=== PATIENT | male | born 1945 | race Caucasian/White ===

== ENCOUNTER → 2016-10-04 | Outpatient (CLI) | payer OTHER, MEDICARE ==
[~2016-10-04] MED LIST: ACET-1256 PO; AMLO-114 PO; ASPCH81 PO; ASPEC325 PO; ATOR-24 PO; CHOL100027 PO; HYDC25 PO; LISI20TA3 PO; LISI40TA PO; MULT-506 PO; OMEG10007 PO; PSYL0.524; RXC5 PO
[2016-10-04 13:53] LABS: INR 0.9 (0.9-1.1); PARTIAL THROMBOPLASTIN RATIO 1.2
[2016-10-04 13:59] LABS: BASO % 0.6 %; BASO ABS # 0.04 K/uL (0-0.2); COMPLETE YES; EOS % 3.6 %; HEMATOCRIT 43.3 % (42-52); IG% 0.1 %; LYMPH % 20.9 %; LYMPH ABS # 1.47 K/uL (1.2-3.4); MEAN CELL VOLUME 84.7 fL (80-100); MEAN CORPUSCULAR HEMOGLOBIN 27.4 pg (25-34); MEAN CORPUSCULAR HGB CONC 32.3 g/dl (32-36); MEAN PLATELET VOLUME 11.1 fL (7.4-10.4); MONO % 7.8 %; PLATELET COUNT 205 K/uL (130-400); RED BLOOD COUNT 5.11 M/uL (4.7-6.1); WHITE BLOOD COUNT 7.04 K/uL (4.8-10.8)
[2016-10-04 14:25] LABS: BLOOD UREA NITROGEN 22 mg/dl (7-18); CALCIUM 9.4 mg/dl (8.5-10.1); CARBON DIOXIDE 23 mmol/L (21-32); CHLORIDE 105 mmol/L (98-107); GLUCOSE 94 mg/dl (70-99); POTASSIUM 3.8 mmol/L (3.5-5.1); SODIUM 137 mmol/L (136-145)
[2016-10-04 14:34] LABS: URINE APPEARANCE CLEAR (CLEAR); URINE BILIRUBIN NEG (NEG); URINE COLOR YELLOW; URINE NITRITE NEG (NEG); URINE SPECIFIC GRAVITY 1.023 (1.000-1.030); UROBILINOGEN NEG (NEG)
[2016-10-04 14:39] LABS: MANUAL MICROSCOPIC REQUIRED? NO; REVIEW REQ? NO
--- NOTE | 2016-11-01 08:13 | CODING QUERY MEDICAL NECESSITY ---
CQSUPPORTING DIAGNOSIS NEEDED A supporting diagnosis is required for the test/procedure performed on this patient in order for us to be reimbursed by the patient's insurance. Please provide a supporting diagnosis for the following test/procedure listed below next to the test name along with your signature. *If there is no additional diagnosis for this patient that would support the following test/procedure please document that below next to the test/procedure. Test(s)/Procedure(s) that require a supporting diagnosis: DOS 10/04/16 URINE CULTURE TEST PROTHROMBIN TIME TEST Provider Signature: Date: Thank you Edith Pedersen Health Information Management Once completed, please kindly fax back to [phone] For questions please call [phone]
== END | disposition home or self-care (01) ==
LOC: C.LABBC 11:00
PROVIDERS: ATTEND Orthopaedic Surgery
DX: Z01.818 Encounter for other preprocedural examination (principal); M16.12 Unilateral primary osteoarthritis, left hip; Z01.812 Encounter for preprocedural laboratory examination

== ENCOUNTER 2016-10-11 05:02 | Inpatient (IN) | payer OTHER, MEDICARE ==
[2016-10-05 13:42] VITALS: BMI 32.0
--- NOTE | 2016-10-07 10:03 | HISTORY & PHYSICAL EXAMINATION ---
DATE OF ADMISSION: 10/11/2016 CHIEF COMPLAINT: Primary osteoarthritis of the left hip. HISTORY OF PRESENT ILLNESS: Carlos is a very pleasant 71-year-old male who has been dealing with several-year history of bilateral hip pain, left worse than right. It affects his daily life. He has very little motion of his hips and significant pain with ambulation. X-rays of his hip demonstrate advanced osteoarthritis, and after failing extensive conservative treatment, he has elected to proceed with a left total hip arthroplasty. PAST MEDICAL HISTORY: Significant for osteoarthritis, hyperlipidemia, hypertension. SURGICAL HISTORY: Significant for cholecystectomy. ALLERGIES: None. MEDICATIONS: Include hydrochlorothiazide 25 mg daily, lisinopril 40 mg daily, amlodipine 10 mg daily, atorvastatin 40 mg daily, aspirin 81 mg daily. FAMILY HISTORY: Noncontributory. SOCIAL HISTORY: He is , has 2 kids. Never drinks. Remains active. REVIEW OF SYSTEMS: He complains of bilateral hip pain, left worse than right. All other pertinent review of systems are negative. PHYSICAL EXAMINATION: GENERAL: He is awake, alert and oriented x3. He is in no apparent distress. He is very pleasant. HEENT: Pupils are equal, round and reactive to light. Extraocular movements intact. Oral mucosa is pink and moist. HEART: Regular rate per radial pulse. LUNGS: Janelle symmetrically bilaterally with no audible breath sounds. ABDOMEN: Soft, nontender, nondistended. MUSCULOSKELETAL: On physical examination of the left leg, he does have a leg length discrepancy with his left leg seeming slightly shorter than his right. He has a very antalgic gait. He has a lot of tightness of his hip. I am unable to get him up to 90 degrees of flexion. He has internal rotation about 10 degrees shy of neutral and 5 degrees of external rotation. X-rays of the pelvis do show advanced osteoarthritis of both hips with joint space narrowing and osteophyte formation. IMPRESSION: Advanced osteoarthritis of the left hip. PLAN: We will proceed with a Biomet Taperloc left total hip arthroplasty. Postoperatively, he will be kept in the hospital for postoperative medical management. He will be started on aspirin 325 mg twice a day for DVT prophylaxis.
[2016-10-11] VITALS (7 sets, daily range): BP systolic 134–170; BP diastolic 71–80; PULSE 66–83; TEMP 36.6–37.2; O2SAT 95–98; Ht 170.2 cm; Wt 94.5 kg
[~2016-10-11] VITALS: Ht 170.2 cm; Wt 94.5 kg
[~2016-10-11 05:02] MED LIST changes: -ASPEC325 PO; -LISI20TA3 PO; -OMEG10007 PO; -RXC5 PO
[2016-10-11] MEDS ORDERED: CEFAZOLIN 2000 MG/60 ML D5W 60 ML IV SCH (06:00)
[2016-10-11] MEDS ORDERED: LACTATED RINGER'S 1000ML 1,000 ML IV SCH (06:00)
[2016-10-11] MEDS ORDERED: FAMOTIDINE 20 MG TAB PO SCH (06:00)
[2016-10-11] MEDS ORDERED: GABAPENTIN 300 MG CAP PO SCH (06:00)
[2016-10-11] MEDS ORDERED: ROPIVACAINE 5MG/ML 30 ML 150 MG, BUPIVACAINE/EPINEPHR 0.5% MPF 30 ML, KETOROLAC TROMETH... INFIL SCH ×7 (06:00)
[2016-10-11] MEDS ORDERED: LACTATED RINGER'S 1000ML IV SCH (06:00)
[2016-10-11] MEDS ORDERED: LACTATED RINGER'S 500 ML IV SCH (06:00)
[2016-10-11] MEDS ORDERED: ACETAMINOPHEN 500 MG TAB PO SCH (06:00)
[2016-10-11] MEDS: TRANEXAMIC ACID INJ 1,000 MG in SODIUM CHLORIDE 0.9% 100ML 100 ML IV SCH ×2 (06:06→06:17)
[2016-10-11] MEDS ORDERED: BUPIVACAINE 0.5 % 5 MG/1 ML PF 10ML VIAL ONE (06:35)
[2016-10-11] MEDS ORDERED: MIDAZOLAM HCL 1 MG/ML 2ML VIAL ONE (06:47)
[2016-10-11] MEDS ORDERED: ORTHO JOINT ANESTHETIC ONE (06:51)
[2016-10-11] MEDS ORDERED: BACITRACIN 50000 UNIT VIAL ONE (06:51)
--- NOTE | 2016-10-11 06:51 | History & Physical Bridge Note ---
H&P Re-Evaluation Bridge Note: I have examined the patient, reviewed the History & Physical and in the interval since the performance of the History & Physical I have noted the following changes of clinical significance: No changes noted
[2016-10-11] MEDS ORDERED: FLUMAZENIL 0.1 MG/1 ML 10 ML VIAL IV PRN (07:30)
[2016-10-11] MEDS ORDERED: FENTANYL CITRATE INJ 50 MCG/1 ML 2 ML VIAL IV PRN (07:30)
[2016-10-11] MEDS ORDERED: ATROPINE SULFATE 0.1 MG/ML 5ML SYR IV PRN (07:30)
[2016-10-11] MEDS ORDERED: EpHEDrine SULFATE INJ 50 MG/ML AMP IV PRN (07:30)
[2016-10-11] MEDS ORDERED: ONDANSETRON INJ 2 MG/ML 2 ML VIAL IV PRN ×2 (07:30→09:30)
[2016-10-11] MEDS ORDERED: PHENYLEPHRINE 100MCG/ML 5ML SYR IV PRN (07:30)
[2016-10-11] MEDS ORDERED: MEPERIDINE HCL 25 MG/ML CARP IV PRN (07:30)
[2016-10-11] MEDS ORDERED: NALOXONE HCL 0.4 MG/1 ML VIAL/CARP IV PRN (07:30)
[2016-10-11] MEDS ORDERED: LABETALOL HCL IV 5 MG/ML 20ML IV PRN (07:30)
[2016-10-11] MEDS ORDERED: HYDROmorphone INJ 2 MG/ML SYR/VIAL IV PRN (07:30)
[2016-10-11] MEDS ORDERED: LIDOCAINE HCL 2% 2 ML VIAL (20MG/ML) ONE (07:40)
[2016-10-11] MEDS ORDERED: PROPOFOL IV EMULSION 10 MG/ML 20 ML VIAL IV ONE (07:40)
[2016-10-11] MEDS ORDERED: EpHEDrine SULFATE 50MG/5ML SYR ONE (08:17)
[2016-10-11] MEDS ORDERED: PHENYLEPHRINE 100MCG/ML 5ML SYR ONE (08:17)
--- NOTE | 2016-10-11 09:18 | [facility] Post Operative Brief Note ---
Immediate Operative Summary Operative Date Oct 11, 2016. Pre-Operative Diagnosis Advanced Osteoarthritis Left Hip Post-Operative Diagnosis Advanced Osteoarthritis Left Hip Procedure(s) Performed Left Anterior Total Hip Arthroplasty--Uncemented Surgeon Dr. Lim Bag Sorter Surgeon(s) MARIA DE JESUS Castro Estimated Blood Loss 350 ml Findings as above Specimens A. Left Femoral Head Complication(s) None Disposition Recovery Room / PACU
[2016-10-11] MEDS ORDERED: SILVER SULFADIAZINE 1% CR 50 GM JAR EXT PRN (09:30)
[2016-10-11] MEDS ORDERED: BISACODYL 10 MG SUPP PR PRN (09:30)
[2016-10-11] MEDS ORDERED: MAGNESIUM HYDROXIDE SUSP 30 ML UDC PO PRN (09:30)
[2016-10-11] MEDS ORDERED: SOD PHOSPHATE/SOD BIPHOSPHATE ENEMA 132 ML BTL PR PRN (09:30)
[2016-10-11] MEDS ORDERED: MoRPHine SULFATE 2 MG/ML CARP IV PRN (09:30)
[2016-10-11] MEDS ORDERED: METOCLOPRAMIDE HCL INJ 5 MG/ML 2 ML VIAL IV PRN (09:30)
--- NOTE | 2016-10-11 10:05 | DIAGNOSTIC IMAGING REPORT ---
LEFT PELVIS/UNILATERAL HIP 1 VIEW CLINICAL HISTORY: Postoperative evaluation. COMPARISON: Hip radiographs August 03, 2016. FINDINGS: Alignment of the total left hip arthroplasty is anatomic. There is no periprosthetic fracture or unexpected radiopaque foreign body. Acetabular screw and surgical drain is in place. There are no unexpected radiopaque foreign bodies. End stage osteoarthritis of the right hip with flattening of the femoral head is noted. IMPRESSION: Expected findings following total left hip arthroplasty. Electronically signed by: Babatunde Rodriguez M.D. 10/11/2016 10:03 AM Dictated Date/Time: 10/11/2016 10:02 AM
--- NOTE | 2016-10-11 10:06 | Anesthesiology Progress Note ---
Anesthesia Post Op Note Date & Time Oct 11, 2016 at 10:06 Vital Signs Pain Intensity: 0 Vital Signs Past 12 Hours Date Time Temp Pulse Resp B/P (MAP) Pulse Ox O2 Delivery O2 Flow Rate FiO2 10/11/16 09:55 65 13 136/72 99 Nasal Cannula 2 10/11/16 09:45 63 15 125/70 98 Nasal Cannula 2 10/11/16 09:37 36.8 69 16 127/69 100 Oxymask 10 10/11/16 05:33 36.6 71 20 170/80 97 Room Air Notes Mental Status: alert / awake / arousable, participated in evaluation Pt Amnestic to Procedure: Yes Nausea / Vomiting: adequately controlled Pain: adequately controlled Airway Patency, RR, SpO2: stable & adequate BP & HR: stable & adequate Hydration State: stable & adequate Neuraxial Anesthesia: was administered, sensory block is resolving Anesthetic Complications: no major complications apparent
--- NOTE | 2016-10-11 10:07 | DIAGNOSTIC IMAGING REPORT ---
LEFT HIP UNILATERAL 1 VIEW CLINICAL HISTORY: LEFT ANTERIOR HIP COMPARISON STUDY: Left hip radiographs August 03, 2016. Fluoroscopy time: 51 seconds. FINDINGS: 3 fluoroscopic images demonstrate expected findings during total left hip arthroplasty. Acetabular screw is in place. No fracture or unexpected radiopaque foreign bodies are identified. IMPRESSION: Expected findings during total left hip arthroplasty. Electronically signed by: Babatunde Rodriguez M.D. 10/11/2016 10:05 AM Dictated Date/Time: 10/11/2016 10:04 AM
--- NOTE | 2016-10-11 10:10 | OPERATIVE REPORT ---
DATE OF OPERATION: 10/11/2016 PREOPERATIVE DIAGNOSIS: Primary osteoarthritis of the left hip. POSTOPERATIVE DIAGNOSIS: Same. PROCEDURE: Left total hip arthroplasty. SURGEON: Dr. Inderjit Lim. NUCLEAR MONITORING TECHNICIAN: Min Calvo PA-C, whose assistance was necessary for helping with retraction and closure. ANESTHESIA: Spinal. COMPLICATIONS: None. CONDITION: Stable to PACU. IMPLANTS USED: I used a Biomet Taperloc system with a size 11 standard offset pressfit Taperloc stem, a G7 size 54 acetabular cup with a single 20 mm screw and an E1 poly liner as well as a ceramic size 40 head with a -3 neck. INDICATIONS: Carlos is a pleasant 71-year-old male who presented to my office with severe bilateral hip pain. X-rays and clinical examination were diagnostic for primary osteoarthritis of both hips. His left hip was bothering him more, and after failing conservative treatment, he elected to undergo a left total hip arthroplasty. OPERATION AND FINDINGS: On 10/11/2016, he arrived at [facility] for the above procedure. He was seen in the preoperative holding area and the operative extremity was identified and signed. He was given a spinal anesthetic and a preoperative antibiotic. He was taken back to the operating room, laid on table in supine position, given basic sedation. The left leg was brought out to a Purist leg positioner. The left hip was then prepped and draped in sterile fashion. Timeout was done, and the patient and operative extremity was properly identified. An anterior approach was used. Dissection was taken down through the tensor and the tensor was retracted laterally and the sartorius and rectus were retracted medially. The circumflex vessels were ligated and the capsule was exposed. The capsule was then incised and tagged for later repair. The femoral head was exposed and the femoral neck was resected. The head was removed and the acetabulum was exposed. Sequential reaming of the acetabulum was then done under fluoroscopy. I was able to ream up to a size 53 and get good bleeding bone circumferentially with proper medialization of the cup. A size 54 G7 cup was then impacted into place, I was able to get a good pressfit, and a single 20 mm screw was placed. The femur was then exposed. Sequential broaching up to a size 11 broach was done. A standard offset neck and a -3 trial were reduced. The hip was reduced and fluoroscopy showed anatomic alignment. I was actually able to lengthen his leg a little bit from what it was preoperatively. The hip was then dislocated. The final size 11 pressfit stem was impacted into place. The ceramic size 40 humeral head with a -3 neck was then impacted on this trunnion and the hip was reduced. Final fluoroscopic images showed anatomic alignment. The wound was then irrigated and the surrounding soft tissues were injected with 100 mL of an orthopedic pain control cocktail. The capsule was then closed with #1 Vicryl sutures. The entire wound was irrigated with 3 liters of normal saline solution with bacitracin. The fascia was then closed with #1 PDS suture in a running fashion and the skin was closed with 2-0 Vicryl and 0 Prolene suture and a Prineo dressing. He was then taken to the postanesthesia care unit in stable condition. He tolerated the procedure well. I attest to the content of the Intraoperative Record and any orders documented therein. Any exception s are noted below.
[2016-10-11] MEDS: KETOROLAC TROMETHAMINE 15 MG/ML VIAL IV. SCH ×3 (11:38→23:27)
[2016-10-11] MEDS: SODIUM CHLORIDE 0.9% 1000ML 1,000 ML IV SCH ×2 (11:38→20:52)
[2016-10-11] MEDS: ACETAMINOPHEN IV 1,000 MG in EMPTY BAG 0 ML IV SCH ×2 (14:26→23:27)
[2016-10-11] MEDS: CEFAZOLIN IV 2,000 MG in DEXTROSE 5% 50ML 50 ML IV SCH ×2 (16:07→23:27)
[2016-10-11] MEDS ORDERED: NURSING VERBAL MED ORDER ONE (17:00)
[2016-10-11] MEDS: ATORVASTATIN 40 MG TAB PO SCH (20:52)
[2016-10-11] MEDS: ASPIRIN 325 MG ECTAB PO SCH (20:52)
[2016-10-11] MEDS: CHOLECALCIFEROL 1000 INTER.UNIT TAB PO SCH (20:53)
[2016-10-11] MEDS: SENNA 8.6 MG TAB PO SCH (20:53)
[2016-10-11] MEDS: DOCUSATE SODIUM 100 MG CAP PO SCH (20:53)
[2016-10-12 03:25] VITALS: BP 132/72; PULSE 67; TEMP 36.7; O2SAT 96
[2016-10-12] MEDS: KETOROLAC TROMETHAMINE 15 MG/ML VIAL IV. SCH ×4 (05:51→23:34)
[2016-10-12 05:52] LABS: BASO % 0.1 %; BASO ABS # 0.01 K/uL (0-0.2); COMPLETE YES; EOS % 0.7 %; HEMATOCRIT 28.6 % (42-52); IG% 0.2 %; LYMPH % 11.6 %; LYMPH ABS # 1.12 K/uL (1.2-3.4); MEAN CELL VOLUME 83.6 fL (80-100); MEAN CORPUSCULAR HEMOGLOBIN 27.8 pg (25-34); MEAN CORPUSCULAR HGB CONC 33.2 g/dl (32-36); MEAN PLATELET VOLUME 9.7 fL (7.4-10.4); MONO % 8.8 %; NEUT % 78.6 %; PLATELET COUNT 135 K/uL (130-400); RED BLOOD COUNT 3.42 M/uL (4.7-6.1); WHITE BLOOD COUNT 9.64 K/uL (4.8-10.8)
[2016-10-12] MEDS: SODIUM CHLORIDE 0.9% 1000ML 1,000 ML IV SCH (06:24)
[2016-10-12 06:35] LABS: BUN/CREATININE RATIO 25.4 (10-20); CALCIUM 7.8 mg/dl (8.5-10.1); CREATININE 1.2 mg/dl (0.60-1.40); POTASSIUM 3.7 mmol/L (3.5-5.1)
[2016-10-12 07:12] VITALS: BP 151/76; PULSE 74; TEMP 36.9; O2SAT 96
[2016-10-12] MEDS: ACETAMINOPHEN IV 1,000 MG in EMPTY BAG 0 ML IV SCH (07:26)
--- NOTE | 2016-10-12 07:32 | PROGRESS NOTE ---
DATE: 10/12/2016 CHIEF COMPLAINT: Status post left total hip arthroplasty, postop day #1. PROGRESS: Carlos was seen and examined at bedside today. Overall, he is doing very well. He has a little bit of soreness in his hip, it is not too bad. He was up, ambulating in his room last night, no other complaints. PHYSICAL EXAMINATION: LEFT HIP: There is a little bit of drainage around the drain sponge, the remainder the dressing is clean and dry. His drain is still to suction. He is neurovascularly intact. LABORATORY DATA: He has an H and H today of 9.5 and 28.6. His glucose is 120. His vital signs are all stable on room air. He is voiding on his own and has already had a bowel movement. X-rays postoperatively of the left hip showed the prosthesis to be in anatomical alignment without any evidence of fracture, dislocation or loosening. IMPRESSION: Status post left total hip arthroplasty, postoperative day #1. PLAN: At this point, he is doing very well. He will be seen by physical therapy today for ambulation. The nursing staff will change the dressing and pull the drain tomorrow and likely discharge him to home first thing in the morning.
[2016-10-12] MEDS: HYDROCHLOROTHIAZIDE 25 MG TAB PO SCH (08:52)
[2016-10-12] MEDS: ASPIRIN 325 MG ECTAB PO SCH ×2 (08:52→20:32)
[2016-10-12] MEDS: MULTIVITAMIN TAB PO SCH (08:52)
[2016-10-12] MEDS: DOCUSATE SODIUM 100 MG CAP PO SCH ×2 (08:52→20:32)
[2016-10-12] MEDS: PANTOprazole SOD 40 MG TAB PO SCH (08:53)
[2016-10-12] MEDS: LISINOPRIL 40 MG TAB PO SCH (08:53)
[2016-10-12] MEDS: AMLODIPINE BESYLATE 5 MG TAB PO SCH (08:53)
[2016-10-12] MEDS: OXYCODONE HCL IR 5 MG TAB (IMMEDIATE RELEASE) PO PRN (08:54)
--- NOTE | 2016-10-12 10:35 | Clinical Documentation Query ---
CLINICAL DOCUMENTATION QUERY In your clinical opinion is this patient being managed for: ( X ) Acute blood loss anemia ( ) Other explanation of clinical findings (Please Explain) ( ) Unable to determine (Please Define) ( ) Need to Discuss ( ) Not Agree The medical record reflects the following clinical findings, treatment, and risk factors. Clinical Indicators: Initial HGB 14.0 dropping to 9.5. EBL = 350 ml, Hemovac drainage = 275 ml, history of chronic blood loss anemia Treatment:type and cross, monitor H&H, monitor I&O Risk Factors: Age, surgical procedure Please clarify and document your clinical opinion in the progress notes and discharge summary. Terms such as "probable", "suspected", "likely", "questionable", "possible", or "still to be ruled out" are acceptable. IF IN AGREEMENT, YOU MUST DOCUMENT ABOVE DIAGNOSTIC STATEMENT IN DAILY PROGRESS NOTES AND DISCHARGE SUMMARY. This document is not part of the patient's record. Thank You, Shira Mata RN [phone]
[2016-10-12] MEDS: ACETAMINOPHEN 500 MG TAB PO SCH ×2 (14:47→21:43)
[2016-10-12 15:06] VITALS: BP 128/67; PULSE 77; TEMP 36.8; O2SAT 98
[2016-10-12] MEDS: SENNA 8.6 MG TAB PO SCH (20:32)
[2016-10-12] MEDS: CHOLECALCIFEROL 1000 INTER.UNIT TAB PO SCH (20:32)
[2016-10-12] MEDS: ATORVASTATIN 40 MG TAB PO SCH (20:32)
[2016-10-12 23:07] VITALS: BP 118/67; PULSE 74; TEMP 36.8; O2SAT 97
[2016-10-13] MEDS: KETOROLAC TROMETHAMINE 15 MG/ML VIAL IV. SCH (05:56)
[2016-10-13] MEDS: ACETAMINOPHEN 500 MG TAB PO SCH (05:57)
[2016-10-13 06:09] VITALS: BP 157/78; PULSE 76; TEMP 36.5; O2SAT 95
[2016-10-13 07:06] VITALS: BP 154/68
[2016-10-13] MEDS ORDERED: RXC5 PO (07:21)
[2016-10-13] MEDS ORDERED: ASPEC325 PO (07:21)
--- NOTE | 2016-10-13 07:23 | Discharge Instructions ---
Discharge Instructions Date of Service Oct 13, 2016. Admission Reason for Admission: Left Hip Degenerative Joint Disease Discharge Discharge Diagnosis / Problem: Left Total Hip Discharge Goals Goal(s): Decrease discomfort, Improve function Activity Recommendations Activity Limitations: as noted below . Instructions / Follow-Up Instructions / Follow-Up Activity and Therapy Recommendations: * If you are using [facility] then Physical Therapy will be provided until they feel you are ready to start Outpatient Physical Therapy. If you are not using a Home Health agency then Outpatient Physical Therapy should start about 3-5 days from your day of surgery. Therapy will last about 3-6 weeks * You were shown a series of exercises in the hospital. Do these exercises three times each day including the exercises you were shown in physical therapy. * Get up and walk several times each day.~ For the first four weeks, try not to stand or walk for more than one hour at a time. If you do stand or walk for more than one hour, you will not hurt anything, but your leg will likely swell.~ ~ * As you feel comfortable, you may change from the walker or crutches to a cane and~then to independent walking. Medications: * Narcotic You will likely be sent home from the hospital with a prescription for the narcotic pain medication that worked best throughout your stay. * Aspirin Most patients will be required to take Aspirin 325mg twice a day for 6 weeks after surgery. This is obtained [id number] and a prescription is not necessary. * Other medications may be prescribed for specific circumstances. If you have any questions, please call the office at . * Resume previous home medications unless otherwise instructed TEDs/Elastic Stockings: The white elastic stockings help limit swelling and prevent blood clots from forming in your legs. The more you wear them, the more they work. Wear them for six weeks. Dressing Care: You will likely have a Prineo dressing covering your incision. This looks like a glued on clear mesh dressing. Do not remove this dressing until you follow- up in my office in 2-3 weeks. Its pretty hard to peel it off. You may leave the Prineo dressing uncovered or cover it if it is draining a little bit. No further dressing care is required Showering: You may shower 3 days from the day of surgery. Leave the Prineo dressing intact and let the soapy shower water run over it. Do not scrub or soak the dressing or the incision. Things To Watch For: * Drainage from the incision site that occurs more than one week after your surgery. * Increased redness at the incision site. * Fever above 102 degrees Fahrenheit. * Unusual chest pain or shortness of breath. * Call [facility] at with any of the above problems Follow-Up Visit: Follow-up with Dr. Lim 2-3 weeks after your day of surgery. An appointment was probably scheduled when you signed-up for surgery in the office. If you have any questions call Office Instructions: More detailed instructions as well as Frequently Asked Questions were provided in a folder by our office when you signed-up for surgery. Please review these instructions when you get home. If you have any further questions or concerns, please feel free to call the office at [phone] Current Hospital Diet Patient's current hospital diet: Regular Diet Discharge Diet Recommended Diet: Regular Diet Procedures Procedures Performed: Left Anterior Total Hip Arthroplasty--Uncemented Pending Studies Studies pending at discharge: no Medical Emergencies . Who to Call and When: Medical Emergencies: If at any time you feel your situation is an emergency, please call [phone] immediately. . Non-Emergent Contact Non-Emergency issues call your: Surgeon Call Non-Emergent contact if: wound has increased drainage, wound has increased redness . "Provider Documentation" section prepared by Inderjit Lim. . VTE Core Measure Inpt VTE Proph given/why not?: Other Anticoagulation (Aspirin 325 twice a day for 6 weeks)
--- NOTE | 2016-10-13 07:35 | PROGRESS NOTE ---
DATE: 10/13/2016 CHIEF COMPLAINT: Status post left total hip arthroplasty postop day #2. PROGRESS: Ed was seen and examined at bedside today. Overall, he is doing very well. He has been up and ambulating without much pain. He had no acute events overnight and has no complaints. PHYSICAL EXAMINATION: LEFT HIP: The dressing has been changed, the drain has been pulled. The incision is clean and dry. He is otherwise neurovascularly intact. IMPRESSION: Status post left total hip arthroplasty postop day #2. PLAN: At this point, he is doing very well. He will be seen by again this morning by physical therapy and will discharge him to home with home health.
--- NOTE | 2016-10-13 07:43 | DISCHARGE SUMMARY ---
DISCHARGE DIAGNOSIS: Primary osteoarthritis of the left hip. PROCEDURE: Left anterior total hip arthroplasty. On 10/11/[address] Inderjit Lim. DISCHARGE INSTRUCTIONS: 1. Aspirin 325 mg twice a day for 6 weeks. 2. Oxycodone 5-10 mg every 4 hours as needed for pain. 3. Tylenol 2 tabs 3 times a day. 4. Norvasc 10 mg daily. 5. Lipitor 40 mg daily. 6. Vitamin D 1000 units daily. 7. HCTZ 25 mg daily. 8. Zestril 40 mg daily. 9. Daily multivitamin. 10. Follow up with Dr. Lim in 2 weeks. 11. Call the office of Dr. Lim with any questions or concerns. HOSPITAL COURSE: Ed is a pleasant 71-year-old male who presented to my office with chronic left hip pain. X-rays and clinical examination were diagnostic for primary osteoarthritis of the hip. After failing conservative treatment, he elected to undergo a left total hip arthroplasty. On 10/11/2016 he arrived at [facility] and underwent a left hip arthroplasty without complications. He had a spinal anesthetic. Postoperatively, he was started on aspirin 325 mg twice a day and discharged to general orthopedic floor. His hospital course was uneventful. On postop day #1, his H&H was stable at 9.5 and 28.6. He was able to ambulate well with physical therapy. His pain was well controlled. On postop day #2, the dressing was changed and drain was pulled. He continued to work well with physical therapy and he was subsequently discharged to home with oral pain medications and the above instructions.
[2016-10-13] MEDS: OXYCODONE HCL IR 5 MG TAB (IMMEDIATE RELEASE) PO PRN (07:50)
[2016-10-13 08:01] VITALS: BP 154/68; PULSE 76; TEMP 36.5; O2SAT 95
[2016-10-13] MEDS: LISINOPRIL 40 MG TAB PO SCH (08:30)
[2016-10-13] MEDS: PANTOprazole SOD 40 MG TAB PO SCH (08:30)
[2016-10-13] MEDS: HYDROCHLOROTHIAZIDE 25 MG TAB PO SCH (08:30)
[2016-10-13] MEDS: DOCUSATE SODIUM 100 MG CAP PO SCH (08:30)
[2016-10-13] MEDS: AMLODIPINE BESYLATE 5 MG TAB PO SCH (08:30)
[2016-10-13] MEDS: MULTIVITAMIN TAB PO SCH (08:30)
[2016-10-13] MEDS: ASPIRIN 325 MG ECTAB PO SCH (08:30)
== END 2016-10-13 09:59 | disposition home health service (06) | DRG 470 ==
LOC: C.ACU 05:02 → C.3E 06:40 → ENRESERV 09:55
PROVIDERS: ADMIT Orthopaedic Surgery; ATTEND Orthopaedic Surgery
PROC: 0SRB04A Replacement of Left Hip Joint with Ceramic on Polyethylene Synthetic Substitute, Uncemented, Open Approach (ICD-10-PCS; principal; 2016-10-12)
DX: M16.0 Bilateral primary osteoarthritis of hip (principal); E78.5 Hyperlipidemia, unspecified; I10 Essential (primary) hypertension; Z79.899 Other long term (current) drug therapy; Z79.82 Long term (current) use of aspirin

== ENCOUNTER 2017-10-15 10:08 | Emergency (ER) | payer OTHER, MEDICARE ==
[~2017-10-15] VITALS: Ht 170.2 cm; Wt 97.0 kg
[~2017-10-15 10:08] MED LIST changes: -AMLO-114 PO; +AMLO10TA3 PO; -ASPCH81 PO; +ASPEC325 PO; +RXC5 PO
[2017-10-15 10:13] VITALS: TEMP 36.4; Ht 170.2 cm; Wt 97.0 kg
[2017-10-15] MEDS ORDERED: ONDANSETRON INJ 2 MG/ML 2 ML VIAL IV STA (10:26)
[2017-10-15] MEDS ORDERED: KETOROLAC TROMETHAMINE 30 MG/ML VIAL IV STA (10:26)
[2017-10-15] MEDS ORDERED: SODIUM CHLORIDE 0.9% 1000ML 1,000 ML IV STA (10:26)
[2017-10-15] MEDS ORDERED: OPTIRAY 320 IV PRN (10:45)
[2017-10-15 10:55] LABS: BASO % 0.1 %; BASO ABS # 0.01 K/uL (0-0.2); EOS % 0.1 %; EOS ABS # 0.01 K/uL (0-0.5); HEMATOCRIT 39.5 % (42-52); HEMOGLOBIN 13.2 g/dL (14.0-18.0); IG# 0.02 K/uL (0.00-0.02); LYMPH % 6.9 %; LYMPH ABS # 0.72 K/uL (1.2-3.4); MEAN CELL VOLUME 83.3 fL (80-100); MEAN CORPUSCULAR HEMOGLOBIN 27.8 pg (25-34); MEAN CORPUSCULAR HGB CONC 33.4 g/dl (32-36); MEAN PLATELET VOLUME 10.4 fL (7.4-10.4); MONO ABS # 0.31 K/uL (0.11-0.59); NEUT % 89.7 %; NEUT ABS # 9.43 K/uL (1.4-6.5); PLATELET COUNT 160 K/uL (130-400); RED CELL DISTRIBUTION WIDTH CV 13.7 % (11.5-14.5); RED CELL DISTRIBUTION WIDTH SD 41.6 fL (36.4-46.3)
[2017-10-15 11:16] LABS: ALBUMIN 4.1 gm/dl (3.4-5.0); CALCIUM 9.2 mg/dl (8.5-10.1); CREATININE 1.86 mg/dl (0.60-1.40); POTASSIUM 3.7 mmol/L (3.5-5.1)
[2017-10-15] MEDS ORDERED: ASPI81TA28 PO (11:58)
[2017-10-15] MEDS ORDERED: HYDR12.55 PO (11:58)
[2017-10-15] MEDS ORDERED: SODIUM CHLORIDE 0.9% 1000ML 500 ML IV ONE (12:37)
--- NOTE | 2017-10-15 13:05 | DIAGNOSTIC IMAGING REPORT ---
CT ABD/PELVIS IV CONTRAST ONLY CLINICAL HISTORY: Right lower quadrant abdominal pain. Nausea. COMPARISON STUDY: None. TECHNIQUE: Following the IV administration of 92 mL of Optiray-320, CT scan of the abdomen and pelvis was performed from the lung bases to the proximal femurs. Images are reviewed in the axial, sagittal, and coronal planes. IV contrast was administered without complication. A dose lowering technique was utilized adhering to the principles of ALARA. CT DOSE: 853.69 mGy.cm FINDINGS: Lower chest: There is respiratory motion artifact. There is no focal pulmonary consolidation. Liver: There is hepatic steatosis. No focal masses are visualized. Gallbladder: Surgically absent Spleen: Normal in size and attenuation. Pancreas: Unremarkable. Adrenal glands: Unremarkable. Kidneys: There is right-sided hydronephrosis. There is diminished right-sided nephrogram. There is right-sided hydroureter. There is a 6 mm distal right ureteral calculus just above the level of the ureteral vesicle junction. This 24 mm left renal cortical cyst. Bowel: There are no transition zones to indicate bowel obstruction. There is colonic diverticulosis. There are no acute peridiverticular inflammatory changes. There is no evidence of acute appendicitis. Peritoneum: There is no intraperitoneal free air or abdominal ascites. There are fat-containing inguinal hernias versus lipomatous inguinal canals Vasculature: The abdominal aorta is normal in course and caliber. Adenopathy: None. Pelvic viscera: The prostate is enlarged measuring 5 cm. Skeletal structures: There are postsurgical changes of a total left hip arthroplasty. There is a right iliopsoas bursal cyst IMPRESSION: 1. 6 mm distal right ureteral calculus with secondary hydroureteronephrosis. 2. No evidence of bowel obstruction. No evidence of free air Electronically signed by: Lokesh Ram M.D. 10/15/2017 1:04 PM Dictated Date/Time: 10/15/2017 12:58 PM
[2017-10-15] MEDS ORDERED: ONDA4TAB10 SL (13:53)
[2017-10-15] MEDS ORDERED: IBUP600T44 PO (13:53)
[2017-10-15] MEDS ORDERED: FAMO20TA11 PO (13:53)
[2017-10-15] MEDS ORDERED: TAMS0.4C38 PO (13:53)
[2017-10-15] MEDS ORDERED: TAMSULOSIN HCL 0.4 MG CAP PO ONE (14:00)
[2017-10-15 14:51] VITALS: BP 149/70; PULSE 71; O2SAT 97
--- NOTE | 2017-10-15 16:37 | EMERGENCY ROOM VISIT NOTE ---
History Report prepared by Sona: Alondra Dyer Under the Supervision of: Dr. Nash Chen M.D. First contact with patient: 10:16 Chief Complaint: ABDOMINAL PAIN Stated Complaint: PAIN IN ABD, RIGHT SIDE, DRY HIEVES, BOUND UP History of Present Illness The patient is a 72 year old male who presents to the Emergency Room with complaints of intermittent right sided abdominal pain beginning last night. He reports his symptoms began with abdominal pain last night, and then he began dry heaving. The patient states that changing positions alleviates his pain. He reports his abdominal pain resolved for a period of time, however he developed back pain began during this time which resolved when his abdominal pain returned. He also notes he normally has a bowel movement every morning, but he did not have one this morning. He denies any urinary symptoms. Source of History: patient Onset: last night Position: abdomen (right sided) Quality: other (abdominal pain) Timing: intermittent Modifying Factors (Relieving): other (change in positions) Associated Symptoms: + back pain (only when his abdominal pain resolved), No urinary symptoms Note: Positive dry heaving and constipation. Review of Systems See HPI for pertinent positives and negatives. A total of ten systems were reviewed and were otherwise negative. Past Medical & Surgical Medical Problems: (1) Cholecystectomy (2) CHR BLOOD LOSS ANEMIA (3) EXT HEMRRHOID W COMP NEC (4) HYPERTENSION NOS (5) Osteoarthritis of left hip (6) PURE HYPERGLYCERIDEMIA Family History No pertinent family history Social History Smoking Status: Never Smoker Alcohol Use: none Marital Status: Occupation Status: retired Current/Historical Medications Scheduled Acetaminophen (Tylenol), 2 TAB PO TID Amlodipine (Norvasc), 10 MG PO QAM Aspirin (Aspirin Ec), 81 MG PO DAILY Atorvastatin (Lipitor), 40 MG PO QPM Cholecalciferol (Vitamin D 1000 Unit), 1,000 INTER.UNIT PO QPM Famotidine (Pepcid), 20 MG PO BID Hydrochlorothiazide (Hydrochlorothiazide), 1 TAB PO DAILY Lisinopril (Zestril), 40 MG PO QAM Multivitamin (Multivitamin), 1 TAB PO QPM Ondasetron Odt (Zofran Odt), 4 MG SL Q6H Psyllium (Metamucil), Unknown Dose QPM Tamsulosin Hcl (Flomax), 0.4 MG PO DAILY Scheduled PRN Ibuprofen (Motrin), 600 MG PO TID PRN for Pain Allergies Coded Allergies: No Known Allergies (Unverified , 10/15/17) Physical Exam Vital Signs Date Time Temp Pulse Resp B/P (MAP) Pulse Ox O2 Delivery O2 Flow Rate FiO2 10/15/17 14:51 71 18 149/70 97 10/15/17 13:15 77 16 149/75 97 Room Air 10/15/17 13:07 75 10/15/17 11:20 73 16 167/79 96 Room Air 10/15/17 10:52 74 10/15/17 10:13 36.4 89 18 170/78 97 Room Air Physical Exam GENERAL: Awake, alert, well-appearing, in no distress HENT: Normocephalic, atraumatic. Oropharynx unremarkable. EYES: Normal conjunctiva. Sclera non-icteric. NECK: Supple. No nuchal rigidity. RESPIRATORY: Clear to auscultation. No wheezes. Normal respiratory effort. CARDIAC: Normal rate. Normal rhythm. Extremities warm and well perfused. GI: Soft, non-distended. No tenderness to palpation. No rebound or guarding. No masses. RECTAL: Deferred. MUSCULOSKELETAL: Atraumatic. Chest examination reveals no tenderness. There is no CVA tenderness to palpation. LOWER EXTREMITIES: Calves are equal size bilaterally and non-tender. No edema NEURO: Normal sensorium. No sensory or motor deficits noted. No facial droop. SKIN: Warm and dry. No rash or jaundice noted. Medical Decision & Procedures ER Provider Diagnostic Interpretation: Radiology results as stated below per my review and radiologist interpretation: CT ABD/PELVIS IV CONTRAST ONLY CLINICAL HISTORY: Right lower quadrant abdominal pain. Nausea. COMPARISON STUDY: None. TECHNIQUE: Following the IV administration of 92 mL of Optiray-320, CT scan of the abdomen and pelvis was performed from the lung bases to the proximal femurs. Images are reviewed in the axial, sagittal, and coronal planes. IV contrast was administered without complication. A dose lowering technique was utilized adhering to the principles of ALARA. CT DOSE: 853.69 mGy.cm FINDINGS: Lower chest: There is respiratory motion artifact. There is no focal pulmonary consolidation. Liver: There is hepatic steatosis. No focal masses are visualized. Gallbladder: Surgically absent Spleen: Normal in size and attenuation. Pancreas: Unremarkable. Adrenal glands: Unremarkable. Kidneys: There is right-sided hydronephrosis. There is diminished right-sided nephrogram. There is right-sided hydroureter. There is a 6 mm distal right ureteral calculus just above the level of the ureteral vesicle junction. This 24 mm left renal cortical cyst. Bowel: There are no transition zones to indicate bowel obstruction. There is colonic diverticulosis. There are no acute peridiverticular inflammatory changes. There is no evidence of acute appendicitis. Peritoneum: There is no intraperitoneal free air or abdominal ascites. There are fat-containing inguinal hernias versus lipomatous inguinal canals Vasculature: The abdominal aorta is normal in course and caliber. Adenopathy: None. Pelvic viscera: The prostate is enlarged measuring 5 cm. Skeletal structures: There are postsurgical changes of a total left hip arthroplasty. There is a right iliopsoas bursal cyst IMPRESSION: 1. 6 mm distal right ureteral calculus with secondary hydroureteronephrosis. 2. No evidence of bowel obstruction. No evidence of free air Electronically signed by: Lokesh Ram M.D. 10/15/2017 1:04 PM Laboratory Results 10/15/17 10:40 Red Blood Count 4.74, Mean Corpuscular Volume 83.3, Mean Corpuscular Hemoglobin 27.8, Mean Corpuscular Hemoglobin Concent 33.4, Mean Platelet Volume 10.4, Neutrophils (%) (Auto) 89.7, Lymphocytes (%) (Auto) 6.9, Monocytes (%) (Auto) 3.0, Eosinophils (%) (Auto) 0.1, Basophils (%) (Auto) 0.1, Neutrophils # (Auto) 9.43, Lymphocytes # (Auto) 0.72, Monocytes # (Auto) 0.31, Eosinophils # (Auto) 0.01, Basophils # (Auto) 0.01 10/15/17 10:40 Test 10/15/17 10:30 10/15/17 10:40 Urine Color YELLOW Urine Appearance CLEAR (CLEAR) Urine pH 5.0 (4.5-7.5) Urine Specific [place] 1.027 (1.000-1.030) Urine Protein 2+ (NEG) Urine Glucose (UA) NEG (NEG) Urine Ketones TRACE (NEG) Urine Occult Blood NEG (NEG) Urine Nitrite NEG (NEG) Urine Bilirubin NEG (NEG) Urine Urobilinogen NEG (NEG) Urine Leukocyte Esterase NEG (NEG) Urine WBC (Auto) 1-5 /hpf (0-5) Urine RBC (Auto) 0-4 /hpf (0-4) Urine Hyaline Casts (Auto) 0 /lpf (0-5) Urine Epithelial Cells (Auto) 5-10 /lpf (0-5) Urine Bacteria (Auto) NEG (NEG) White Blood Count 10.50 K/uL (4.8-10.8) Red Blood Count 4.74 M/uL (4.7-6.1) Hemoglobin 13.2 g/dL (14.0-18.0) Hematocrit 39.5 % (42-52) Mean Corpuscular Volume 83.3 fL (80-100) Mean Corpuscular Hemoglobin 27.8 pg (25-34) Mean Corpuscular Hemoglobin Concent 33.4 g/dl (32-36) Platelet Count 160 K/uL (130-400) Mean Platelet Volume 10.4 fL (7.4-10.4) Neutrophils (%) (Auto) 89.7 % Lymphocytes (%) (Auto) 6.9 % Monocytes (%) (Auto) 3.0 % Eosinophils (%) (Auto) 0.1 % Basophils (%) (Auto) 0.1 % Neutrophils # (Auto) 9.43 K/uL (1.4-6.5) Lymphocytes # (Auto) 0.72 K/uL (1.2-3.4) Monocytes # (Auto) 0.31 K/uL (0.11-0.59) Eosinophils # (Auto) 0.01 K/uL (0-0.5) Basophils # (Auto) 0.01 K/uL (0-0.2) RDW Standard Deviation 41.6 fL (36.4-46.3) RDW Coefficient of Variation 13.7 % (11.5-14.5) Immature Granulocyte % (Auto) 0.2 % Immature Granulocyte # (Auto) 0.02 K/uL (0.00-0.02) Anion Gap 13.0 mmol/L (3-11) Est Creatinine Clear Calc Drug Dose 40.4 ml/min Estimated GFR () 41.3 Estimated GFR (Non- 35.6 BUN/Creatinine Ratio 16.6 (10-20) Calcium Level 9.2 mg/dl (8.5-10.1) Total Bilirubin 0.8 mg/dl (0.2-1) Direct Bilirubin 0.2 mg/dl (0-0.2) Aspartate Amino Transf (AST/SGOT) 31 U/L (15-37) Alanine Aminotransferase (ALT/SGPT) 43 U/L (12-78) Alkaline Phosphatase 60 U/L (45-117) Total Protein 8.0 gm/dl (6.4-8.2) Albumin 4.1 gm/dl (3.4-5.0) Lipase 119 U/L (73-393) Laboratory results reviewed by me Medications Administered Medications (Trade) Dose Ordered Sig/Josselyn Route Start Time Stop Time Status Last Admin Dose Admin Sodium Chloride 1,000 ml @ 999 mls/hr Q1H1M STAT IV 10/15/17 10:26 10/15/17 11:26 DC 10/15/17 11:14 999 MLS/HR Ondansetron HCl (Zofran Inj) 4 mg NOW STAT IV 10/15/17 10:26 10/15/17 10:28 DC 10/15/17 11:15 4 MG Ketorolac Tromethamine (Toradol Inj) 15 mg NOW STAT IV 10/15/17 10:26 10/15/17 10:28 DC 10/15/17 11:16 15 MG Sodium Chloride 500 ml @ 999 mls/hr Q31M ONCE IV 10/15/17 12:37 10/15/17 13:07 DC 10/15/17 12:37 999 MLS/HR Tamsulosin HCl (Flomax Cap) 0.4 mg NOW ONCE PO 10/15/17 14:00 10/15/17 14:01 DC 10/15/17 14:00 0.4 MG ED Course 1020: The patient was evaluated in room B6. A complete history and physical exam was performed. 1026: Ordered Toradol Inj 15 mg IV, Zofran Inj 4 mg IV 1237:Ordered Sodium Chloride 500 ml @ 999 mls/hr IV 1400: Flomax Cap 0.4 mg PO 1405: I reevaluated the patient. Discussed results and discharge instructions: He verbalized understanding and agreement. The patient is ready for discharge. Medical Decision Triage Nursing notes reviewed. Differential diagnosis: Etiologies such as appendicitis, diverticulitis, PUD, biliary pathology, UTI, pancreatitis, obstruction, mesenteric ischemia, aortic pathology, infections, inflammatory bowel disease, renal colic, as well as others were entertained. Patient presents with right-sided abdominal pain, nausea, and constipation since last night. No traumatic history. No fevers reported. Denies actually vomiting. Well-appearing with moderate abdominal pain but unimpressive abdominal exam. Laboratory studies to evaluate for possible leukocytosis, kidney injury, hepatitis, pancreatitis were completed. Urinalysis completed. CT the abdomen pelvis was completed as well to evaluate for abdominal pathology such as appendicitis, perforation, colitis, or obstruction. Doubt UTI or prostatitis. Doubt this is ACS. No evidence of hepatitis or pancreatitis. No significant leukocytosis. Doubt mesenteric ischemia. Evidence of a right-sided nephrolithiasis, 6 mm. Possible MISSY noted based on labs from last year. No evidence of acute infection here. Started on Flomax. Pain improved with treatment here as well as nausea and he states he feels "great". Discussed findings with him and his . Long discussion regarding options regarding outpatient trial of medication for passages versus admission and repeat testing of his renal function. He states he like to go home and will follow up with his regular doctor within the week for repeat renal function testing. Will refer to urology within the next week if not improving. Given his significant improvement with only Motrin here we will sent home with Motrin and Pepcid. Medication Reconcilliation Current Medication List: was personally reviewed by me Blood Pressure Screening Patient's blood pressure: Elevated blood pressure Blood pressure disposition: Referred to PCP Impression Primary Impression: Kidney stone on right side Scribe Attestation The scribe's documentation has been prepared under my direction and personally reviewed by me in its entirety. I confirm that the note above accurately reflects all work, treatment, procedures, and medical decision making performed by me. Departure Information Dispostion Home / Self-Care Prescriptions Famotidine (Pepcid) 20 Mg Tab 20 MG PO BID for 14 Days, #28 TAB Prov: Nash Chen M.D. 10/15/17 Ondasetron Odt (ZOFRAN ODT) 4 Mg Tab 4 MG SL Q6H for Nausea, #8 TAB Prov: Nash Chen M.D. 10/15/17 Ibuprofen (Motrin) 600 Mg Tab 600 MG PO TID Y for Pain, #15 TAB With Food Prov: Nash Chen M.D. 10/15/17 Tamsulosin Hcl (FLOMAX) 0.4 Mg Cap 0.4 MG PO DAILY, #14 CAP Prov: Nash Chen M.D. 10/15/17 Referrals Randall De Jesus M.D. (PCP) Forms Call Back Authorization, HOME CARE DOCUMENTATION FORM, IMPORTANT VISIT INFORMATION Patient Instructions My [facility] Additional Instructions Recommend outpatient follow-up with urology within the next 1 week and follow- up within the next 3-4 days with your regular doctor for repeat renal function testing. Maintain good hydration. Utilize prescribed medication to help pass the stone and for nausea. Utilize the pain medicine as needed. Take the Pepcid to help protect your stomach while on this medicine. If at any time you have new concerns or symptoms please return here for reevaluation.
== END 2017-10-15 14:40 | disposition home or self-care (01) ==
LOC: C.EDB 10:10
DX: N20.0 Calculus of kidney (principal); I10 Essential (primary) hypertension; E78.1 Pure hyperglyceridemia; Z79.82 Long term (current) use of aspirin; Z79.899 Other long term (current) drug therapy